=== PATIENT | female | born 1995 | race Caucasian/White ===

== ENCOUNTER 2024-10-07 17:32 | Emergency (ER) | payer BC ==
[2024-10-07 18:14] VITALS: BP 107/73; PULSE 81; RESP 18; TEMP 98.5; BMI 20.8
[2024-10-07] MEDS: ACETAMINOPHEN 500 MG TABLET (FP) PO ONE (19:01)
== END 2024-10-07 19:16 | disposition home or self-care (01) ==
LOC: JER 17:32
DX: J32.9 Chronic sinusitis, unspecified (principal); R51.9 Headache, unspecified
CPT/HCPCS: 99283-25